=== PATIENT | female | born 1935 | race Caucasian/White ===

== ENCOUNTER 2020-09-13 12:20 | Inpatient (IN) | payer MEDICARE ==
[~2020-09-13] VITALS: Ht 165.1 cm; Wt 88.1 kg
--- NOTE | 2020-09-13 12:42 | PHYS DOC ---
General Adult EDM: Chief Complaint: SHORTNESS OF BREATH HPI: HPI: Patient is a 85-year-old female coming in for shortness of breath since yesterday. Patient states she is in from out of town and has been here for approximately 1 week to help of family. At home patient's oxygen was checked and was in the low 80s. She denies any cough, chest pain, worsening lower extremity edema. States she has been compliant on all of her medications. Denies any sick contacts. Received her second dose of Covid vaccine in May. Has a history of of CHF and A. fib, and is anticoagulated Eliquis. Denies orthopnea, but uses a "breathing machine" at night. Denies any history of lung disease or tobacco use. Review of Systems: Review of Systems: All other systems within normal limits except for as noted in the HPI Physical Exam: PE: Constitutional: Well developed, well nourished, no acute distress, non-toxic appearance. [] HENT: Normocephalic, atraumatic, bilateral external ears normal, nose normal. [] Eyes: PERRLA, conjunctiva normal, no discharge. [] Neck: No rigidity, supple, no stridor. [] Cardiovascular: Irregularly irregular rhythm, brisk cap refill [] Lungs & Thorax: Non labored symmetric respirations, no tachypnea or respiratory distress. Diminished breath sounds at bases, faint crackles on the left. [] Abdomen: Soft, nondistended. Skin: Warm, dry, no erythema, no rash. [] Back: Unremarkable Extremities: No deformities, range of motion grossly intact, no lower extremity edema [] Neurologic: Alert and oriented X 3, no focal deficits noted. [] Psychologic: Affect normal, judgement normal, mood normal. [] EKG: EKG: Irregular regular rhythm, left axis deviation, left anterior fascicular block, no ST elevation or depression [] Radiology/Procedures: Radiology/Procedures: EXAMINATION: CT THORAX W. Technique: Axial images with coronal and sagittal reconstructions are performed of the thorax with intravenous contrast. 60 ml of Isovue-300 was administered intravenously. One or more of the following radiation dose reduction techniques was used: aut omated exposure control, adjustment of mA and/or KV according to patient size, and/or utilization of iterative reconstruction technique. HISTORY: 85 years Female hypoxia. COMPARISON: Correlation with chest x-ray performed on the same day. FINDINGS: There is a significant consolidation in the right lung with patchy mild areas of consolidation in the left lung seen. The there is a mixed solid and groundglass opacities. There are also bilateral pleural effusions small to moderate on the right side and small on the left side. The heart size is a enlarged with particularly dilated left and right atria. Significant coronary artery c alcifications seen. There is no pericardial effusion. At the pulmonary arteries and at the thoracic aorta appear unremarkable. There is no mediastinal mass. There is some mild lymphadenopathy measuring 1.5 the CM in the pretracheal region. No axillary lymphadenopathy. Slightly prominent right hilar lymph nodes also seen. Sections in the upper abdomen appear grossly unremarkable. 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 IMPRESSION: Findings are probably related to CHF with suspected superimposed pneumonia in the right lung base and the asymmetry of the findings. [] Heart Score: C/O Chest Pain: No Risk Factors: Risk Factors: DM, Current or recent (<one month) smoker, HTN, HLP, family history of CAD, obesity. Risk Scores: Score 0 - 3: 2.5% MACE over next 6 weeks - Discharge Home Score 4 - 6: 20.3% MACE over next 6 weeks - Admit for Clinical Observation Score 7 - 10: 72.7% MACE over next 6 weeks - Early Invasive Strategies Course & Med Decision Making: Course & Med Decision Making Pertinent Labs and Imaging studies reviewed. (See chart for details) Admit for pneumonia requiring oxygen. Dr. Langley looks up to this hospital. Ant ibiotics initiated for CAP [] Antwan Disclaimer: Antwan Disclaimer: This electronic medical record was generated, in whole or in part, using a voice recognition dictation system. Departure Departure: Impression: Primary Impression: CAP (community acquired pneumonia) Disposition: ADMITTED INPATIENT Admitting Physician: Cami Langley Condition: STABLE Referrals: PCP,UNKNOWN (PCP) BARB QUINTANA MD September 13, 2020 12:42
[2020-09-13 13:08] LABS: BASO % 0 % (0-3); EOS % 0 % (0-3); HEMOGLOBIN 9.9 g/dL (12.0-15.5); LYMPH % 10 % (24-48); MEAN CORPUSCULAR HEMOGLOBIN 33 pg (25-35); MEAN CORPUSCULAR HGB CONC 33 g/dL (31-37); MEAN CORPUSCULAR VOLUME 99 fL (79-100); MONO # 0.9 x10^3/uL (0.0-1.1); MONO % 9 % (0-9); NEUT # 7.8 x10^3uL (1.8-7.7); NEUT % 80 % (31-73); PLATELET COUNT 265 x10^3/uL (140-400); RED BLOOD COUNT 3.04 x10^6/uL (3.50-5.40); RED CELL DISTRIBUTION WIDTH 13.9 % (11.5-14.5); WHITE BLOOD COUNT 9.8 x10^3/uL (4.0-11.0)
--- NOTE | 2020-09-13 13:09 | RAD ---
XR CHEST 1V History: Reason: hypoxia, dyspnea / Spl. Instructions: / History: Comparison: None. Findings: Masslike consolidations within the right mid and upper lung. Additional patchy bibasilar opacities. S mall right pleural effusion. No pneumothorax. Normal heart size. Glenohumeral DJD. Impression: 1. Masslike consolidations within the right mid and upper lung, may represent pneumonia. Recommend f ollow-up to ensure resolution and exclude underlying malignancy. Alternatively, CT with contrast can further assess. 2. Small right pleural effusion. Electronically signed by: Zachary Tran DO (09/13/2020 1:07 PM) [id number]
[2020-09-13 13:20] LABS: CALCIUM 9.4 mg/dL (8.5-10.1); CREATININE 1.1 mg/dL (0.6-1.0); POTASSIUM 4.8 mmol/L (3.5-5.1)
[2020-09-13] MEDS ORDERED: IOHEXOL 300 MG/ML 75 ML VIAL. IV ONE (13:30)
[2020-09-13] MEDS ORDERED: CONTRAST GIVEN. MC PRN (13:30)
[2020-09-13 13:46] LABS: ALBUMIN 2.8 g/dL (3.4-5.0); ALBUMIN/GLOBULIN RATIO 0.7 (1.0-1.7); MAGNESIUM 2.2 mg/dL (1.8-2.4); PHOSPHORUS 3.5 mg/dL (2.6-4.7); TOTAL BILIRUBIN 0.8 mg/dL (0.2-1.0); TOTAL PROTEIN 6.8 g/dL (6.4-8.2)
--- NOTE | 2020-09-13 13:53 | EKG ---
[address] [address] Test Date: 2020-09-13 Test Time: 12:38:41 Pat Name: MARILEE RIBEIRO Department: Room: Gender: F Gate Technician: : [id number] Requested By: BARB QUINTANA Order Number: [id number] Reading MD: Measurements Intervals Hugo Rate: 94 P: OR: QRS: -48 QRSD: 104 T: 83 QT: 344 QTc: 435 Interpretive Statements IRREGULAR RHYTHM, NO P-WAVE FOUND ABNORMAL LEFT AXIS DEVIATION LEFT ANTERIOR FASCICULAR BLOCK LVH WITH REPOLARIZATION ABNORMALITY QRS(T) CONTOUR ABNORMALITY CONSIDER ANTEROSEPTAL MYOCARDIAL DAMAGE ABNORMAL ECG RI6.02 No previous ECG available for comparison
--- NOTE | 2020-09-13 15:00 | RAD ---
Site ID: [id number] EXAMINATION: CT THORAX W. Technique: Axial images with coronal and sagittal reconstructions are performed of the thorax with in travenous contrast. 60 ml of Isovue-300 was administered intravenously. One or more of the following radiation dose reduction techniques was used: automated exposure control , adjustment of mA and/or KV according to patient size, and/or utilization of iterative reconstructio n technique. HISTORY: 85 years Female hypoxia. COMPARISON: Correlation with chest x-ray performed on the same day. FINDINGS: There is a significant consolidation in the right lung with patchy mild areas of consolidation in the left lung seen. The there is a mixed solid and groundglass opacities. There are also bilateral pleur al effusions small to moderate on the right side and small on the left side. The heart size is a enla rged with particularly dilated left and right atria. Significant coronary artery calcifications seen. There is no pericardial effusion. At the pulmonary arteries and at the thoracic aorta appear unremarkable. There is no mediastinal mass. There is some mild lymphadenopathy measuring 1.5 the CM in the pretrach eal region. No axillary lymphadenopathy. Slightly prominent right hilar lymph nodes also seen. Sections in the upper abdomen appear grossly unremarkable. 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 IMPRESSION: Findings are probably related to CHF with suspected superimposed pneumonia in the right lung base and the asymmetry of the findings. Electronically signed by: Cade Ronquillo MD (09/13/2020 2:58 PM) [id number]
[2020-09-13 15:02] LABS: BILIRUBIN,URINE NEG (NEG); CLARITY,URINE CLEAR; COLOR,URINE YELLOW; GLUCOSE,URINE NEG (NEG); NITRITE,URINE NEG (NEG); UROBILINOGEN,URINE 0.2 mg/dL (0.2 mg/dL)
[2020-09-13 15:07] LABS: BACTERIA,URINE 0 /HPF (0-FEW); HYALINE CASTS, URINE MOD /HPF; SQUAMOUS EPITHELIAL CELL,UR FEW /LPF
[2020-09-13] MEDS ORDERED: MORPHINE SULFATE 2 MG/ML DISP.SYRIN. IVP PRN (15:30)
[2020-09-13] MEDS ORDERED: ONDANSETRON PF 4 MG/2 ML VIAL. IVP PRN (15:30)
[2020-09-13] MEDS ORDERED: ACETAMINOPHEN 325 MG TABLET PO PRN (15:30)
[2020-09-13] MEDS ORDERED: AZITHROMYCIN 500 MG in IV NORMAL SALINE 250ML 250 ML IV ONE (15:30)
[2020-09-13] MEDS ORDERED: IV NORMAL SALINE 250ML 250 ML ONE (15:32)
[2020-09-13] MEDS ORDERED: AZITHROMYCIN 500 MG VIAL. IV ONE (15:32)
[2020-09-13] MEDS ORDERED: IV NORMAL SALINE 50ML 50 ML ONE (15:32)
[2020-09-13] MEDS ORDERED: cefTRIAXone SODIUM 1 GM VIAL ONE (15:32)
[2020-09-13 16:36] VITALS: BP 117/73
[2020-09-13] MEDS: IPRATRPIUM/ALBUTEROL 0.5/2.5MG 3 ML NEBU. NEB SCH ×2 (17:10→20:14)
[2020-09-13] MEDS ORDERED: LEVO25TA4 PO (17:17)
[2020-09-13] MEDS ORDERED: POTA10TA5 PO (17:17)
[2020-09-13] MEDS ORDERED: AMLO-186 PO (17:17)
[2020-09-13] MEDS ORDERED: IRBE1TAB5 PO (17:17)
[2020-09-13] MEDS ORDERED: VIT1CAPS12 PO (17:17)
[2020-09-13] MEDS ORDERED: APIX5TAB3 PO (17:17)
[2020-09-13] MEDS ORDERED: CRESTOR10 MG PO (17:17)
[2020-09-13] MEDS ORDERED: FURO20TA3 PO (17:17)
[2020-09-13] MEDS ORDERED: MULT-47 PO ×2 (17:17)
[2020-09-13] MEDS ORDERED: METF500T16 PO (17:17)
[2020-09-13] MEDS ORDERED: CHOL10004 PO (17:17)
[2020-09-13] MEDS ORDERED: LABE300T2 PO (17:30)
[2020-09-13] MEDS ORDERED: LABE100T5 PO (17:30)
[2020-09-13] MEDS ORDERED: MULT-129 PO (17:57)
[2020-09-13] MEDS ORDERED: IRBE300T23 PO (17:57)
--- NOTE | 2020-09-13 19:18 | HP ---
ADMIT DATE: 09/13/2020 HISTORY OF PRESENT ILLNESS: The patient is an 85-year-old female patient, who presented to the emergency room with a complaint of shortness of breath that started yesterday. She actually came to visit her children from [place] and has been here for approximately one week to help her family at home. The patient's oxygen was checked and was low at the 80s. She denied any cough, chest pain, or worsening lower extremity edema. She states she has been compliant with all of her medication. Denied any sick contact. She received her second dose of COVID vaccine in May. She has a history of congestive heart failure, AFib, and she is on anticoagulation in the form of Eliquis. She denied any orthopnea; however, she is known to have obstructive sleep apnea and she is on CPAP at nighttime. She was extensively investigated in the emergency room and apparently was found to have community-acquired pneumonia as well as [id number] congestive heart failure. She was treated with IV antibiotic in the form of Rocephin and Zithromax. She was also given breathing treatment and was admitted for further evaluation and treatment and to consult our account executive agrib[employer], as her x-rays are suggestive of also an element of congestive heart failure. PAST MEDICAL HISTORY: Significant for hypertension, hyperlipidemia, type 2 diabetes mellitus, hypothyroidism, atrial fibrillation, obstructive sleep apnea, TIA, and senile macular degeneration. PAST SURGICAL HISTORY: Significant for bilateral total knee arthroplasty. ALLERGIES: She has no known drug allergies. MEDICATIONS: She is on apixaban 5 mg twice a day, labetalol 150 mg daily, labetalol 300 mg at bedtime, amlodipine besylate 5 mg daily, irbesartan/hydrochlorothiazide 150/12.5 mg one tablet once a day, potassium chloride 10 mEq twice a day, furosemide 20 mg daily, metformin 500 mg twice a day with meals, levothyroxine sodium 25 mcg once a day, cholecalciferol vitamin D3 25 mcg twice a day, multivitamin with mineral one tablet once a day, Crestor 10 mg at bedtime. FAMILY HISTORY: She has one older sister who is . Both parents are , but does not know their age or the cause of their . SOCIAL HISTORY: She lives alone. She never smoked, does not drink alcohol. She has 2 daughters and 1 son. She uses a cane when outside the home. REVIEW OF SYSTEMS: The patient denied any blurring of vision. She has cataracts and senile macular degeneration. Denied any glaucoma. Denied any earache, tinnitus or sensorineural deafness. Denied nosebleed, stuffy nose or postnasal drip. Denied any sore throat, sore tongue, toothache, hoarseness of voice, or difficulty swallowing. Denied any nausea, vomiting, diarrhea or constipation. Denied any hematemesis, melena or hematochezia. Denied any dysuria, frequency or hematuria. Denied any chest pain. Did complain of shortness of breath, but denied any orthopnea or paroxysmal nocturnal dyspnea. Denied any cough, phlegm, or hemoptysis. PHYSICAL EXAMINATION: GENERAL: On arrival to the emergency room, the patient looked well and was clearly in no apparent respiratory distress. She was somewhat pale, but no jaundice, cyanosis or thyromegaly. No jugular venous distention. No limb edema. VITAL SIGNS: Her heart rate was 89, blood pressure is 128/71, temperature was 97.1, respiratory rate was 18 and oxygen saturation was 85% on room air. HEAD, EYES, EARS, NOSE, AND THROAT: Normocephalic, atraumatic. NECK: Supple. HEART: Showed normal first and second heart sounds. No gallop or murmur. CHEST: Shows central trachea. Equal bilateral expansion and air entry. Vesicular breath sounds with crepitation mostly bilaterally, but more worse on the right side. I could not appreciate any rhonchi. ABDOMEN: Distended, soft, nontender. NEUROLOGIC: She is awake, alert, responding appropriately. Cranial nerves intact. She moves extremities without difficulty. LABORATORY DATA: Her lab work on admission showed a white cell count of 9800, hemoglobin 10, hematocrit 30, MCV 99 and platelet count 265,000. Her blood gases showed a pH of 7.41, pCO2 of 39, pO2 of 21, bicarbonate 25, and oxygen saturation was 35% on FIO2 of 40%. Her chemistry showed a serum sodium 142, potassium 4.8, chloride 107, bicarbonate 24, anion gap of 11, BUN 35, creatinine 1.1. Estimated GFR was 47 mL per minute, her glucose 157. Lactic acid was 1.4, calcium was 9.4, phosphorus 2.5, magnesium 2.2. Total bilirubin and ALT normal, AST and alkaline phosphatase slightly elevated. Beta-natriuretic peptide was 5858. Total protein 6.8, albumin 2.8. D-dimer was 0.49. Urinalysis was essentially unremarkable and was negative. Her chest x-ray showed mass-like consolidation within the right mid and upper lung, may represent pneumonia. Recommend followup to ensure resolution and exclude underlying malignancy. CT scan of the chest with contrast showed the patient has significant consolidation in the right lung with patchy mild areas of consolidation in the left lung seen. There are mixed, solid and ground-glass opacities. There are also bilateral pleural effusions, small to moderate on the right side and small on the left side. The heart size is enlarged with particularly dilated left and right atria. Significant coronary artery calcification is seen. There is no pericardial effusion. The pulmonary arteries and the thoracic aorta appears unremarkable. There is no mediastinal mass. There is some mild lymphadenopathy measuring 1.5. No axillary lymphadenopathy. There is no mediastinal mass. There is some mild lymphadenopathy measuring up to 1.5 cm. Sections in the upper abdomen appeared grossly unremarkable. ASSESSMENT AND PLAN: The patient was admitted with community-acquired pneumonia with possible superimposed [id number] congestive heart failure. She was started on ceftriaxone and Zithromax. We will reconcile all her medications. I will change her Lasix to be given IV tomorrow and will consult also our account executive [employer] to assist with her management. ATIF/MANUEL DR: Mook TID: [id number]
[2020-09-13 19:36] VITALS: BP 106/65
[2020-09-13] MEDS: CHOLECALCIFEROL (VITAMIN D3) 1,000 UNIT TABLET PO SCH (20:53)
[2020-09-13] MEDS: ATORVASTATIN CALCIUM 20 MG TABLET PO SCH (20:53)
[2020-09-13] MEDS: POTASSIUM CHLORIDE 10 MEQ TABLET.ER. PO SCH (20:54)
[2020-09-13] MEDS: APIXABAN 5 MG TABLET. PO SCH (20:54)
[2020-09-13] MEDS: LABETALOL HCL 100 MG TABLET PO SCH (20:55)
[2020-09-13 22:40] VITALS: BP 99/57
[2020-09-14] MEDS: IPRATRPIUM/ALBUTEROL 0.5/2.5MG 3 ML NEBU. NEB SCH ×2 (05:20→11:18)
[2020-09-14] MEDS: LEVOTHYROXINE 25 MCG TABLET. PO SCH (05:23)
[2020-09-14 05:47] VITALS: BP 142/70
[2020-09-14 05:59] LABS: BASO % 0 % (0-3); EOS # 0.2 x10^3/uL (0.0-0.7); EOS % 3 % (0-3); HEMOGLOBIN 9.9 g/dL (12.0-15.5); LYMPH # 1.1 x10^3/uL (1.0-4.8); LYMPH % 13 % (24-48); MEAN CORPUSCULAR HEMOGLOBIN 32 pg (25-35); MEAN CORPUSCULAR HGB CONC 33 g/dL (31-37); MEAN CORPUSCULAR VOLUME 98 fL (79-100); MONO # 0.9 x10^3/uL (0.0-1.1); MONO % 10 % (0-9); NEUT # 6.5 x10^3uL (1.8-7.7); NEUT % 75 % (31-73); PLATELET COUNT 280 x10^3/uL (140-400); RED BLOOD COUNT 3.05 x10^6/uL (3.50-5.40); RED CELL DISTRIBUTION WIDTH 13.7 % (11.5-14.5); WHITE BLOOD COUNT 8.8 x10^3/uL (4.0-11.0)
[2020-09-14 06:10] LABS: CREATININE 1.1 mg/dL (0.6-1.0); POTASSIUM 4.5 mmol/L (3.5-5.1)
[2020-09-14] MEDS: LABETALOL HCL 100 MG TABLET PO SCH ×2 (08:00→20:12)
[2020-09-14] MEDS: CHOLECALCIFEROL (VITAMIN D3) 1,000 UNIT TABLET PO SCH ×2 (08:06→20:13)
[2020-09-14] MEDS: LOSARTAN 50 MG TABLET. PO SCH (08:06)
[2020-09-14] MEDS: MULTIVITAMIN I-VITE TABLET. PO SCH (08:06)
[2020-09-14] MEDS: MULTIVITAMIN with MINERAL TABLET. PO SCH (08:07)
[2020-09-14] MEDS: POTASSIUM CHLORIDE 10 MEQ TABLET.ER. PO SCH ×2 (08:07→20:12)
[2020-09-14] MEDS: amLODIPine BESYLATE 5 MG TABLET PO SCH (08:07)
[2020-09-14] MEDS: metFORMIN 500 MG TABLET PO SCH ×2 (08:07→16:53)
[2020-09-14] MEDS: APIXABAN 5 MG TABLET. PO SCH ×2 (08:07→20:12)
[2020-09-14] MEDS: FUROSEMIDE 20 MG/2 ML VIAL IVP SCH (08:08)
[2020-09-14] MEDS ORDERED: GINKGO PO SCH (09:00)
[2020-09-14] MEDS ORDERED: [UNRECOGNIZED DRUG - OTHER] PO SCH (09:00)
[2020-09-14] MEDS ORDERED: MULTIVITAMINS MIN PO SCH (09:00)
[2020-09-14 11:10] VITALS: BP 136/77
--- NOTE | 2020-09-14 15:43 | PDOC2 ---
CONSULT DOS: DATE: 09/14/20 TIME: 15:43 Reason for Consult: Congestive heart failure Referring Physician: Dr. Langley Chief Complaint Shortness of breath Source: Chart review, Patient Problem List Problems Medical Problems: (1) CAP (community acquired pneumonia) Status: Acute History of Present Illness 85-year-old female with history of atrial fibrillation was apparently visiting her family in [place] when she developed shortness of breath. She was diagnosed with community-acquired pneumonia and congestive heart failure and admitted for further management. She denied any chest pain, orthopnea/PND, palpitations or syncope. Her shortness of breath improved since admission. Past Medical History Atrial fibrillation, most probably permanent Hypertension Hyperlipidemia Diabetes mellitus type 2 Hypothyroidism Obstructive sleep apnea TIA Macular degeneration Past Surgical History Bilateral total knee arthroplasty Family History Not contributory Social History Patient denied any smoking, alcohol or drug use Current Medications Current Medications Iohexol (Omnipaque 300 Mg/ml) 75 ml 1X ONCE IV Last administered on 09/13/20at 14:25; Start 09/13/20 at 13:30; Stop 09/13/20 at 13:31; Status DC Info (Do NOT chart on this entry -- for MONITORING) 1 each PRN DAILY PRN MC SEE COMMENTS; Start 09/13/20 at 13:30; Stop 09/15/20 at 13:29 Ceftriaxone Sodium 1 gm/ Sodium Chloride 50 ml @ 100 mls/hr 1X ONCE IV Last administered on 09/13/20at 15:38; Start 09/13/20 at 15:30; Stop 09/13/20 at 15:59; Status DC Azithromycin 500 mg/Sodium Chloride 250 ml @ 250 mls/hr 1X ONCE IV Last administered on 09/13/20at 15:47; Start 09/13/20 at 15:30; Stop 09/13/20 at 16:29; Status DC Ondansetron HCl (Zofran) 4 mg PRN Q4HRS PRN IVP NAUSEA/VOMITING Last administered on 09/13/20at 15:47; Start 09/13/20 at 15:30; Stop 09/14/20 at 15:29; Status DC Morphine Sulfate (Morphine 2mg Syringe) 2 mg PRN Q2HR PRN IVP PAIN; Start 09/13/20 at 15:30; Stop 09/14/20 at 15:29; Status DC Acetaminophen (Tylenol) 650 mg PRN Q4HRS PRN PO FEVER > 100.3'F Last administered on 09/13/20at 15:38; Start 09/13/20 at 15:30; Stop 09/14/20 at 15:29; Status DC Albuterol/ Ipratropium (Duoneb) 3 ml RTQID NEB Last administered on 09/14/20at 11:18; Start 09/13/20 at 16:00; Stop 09/14/20 at 15:59 Sodium Chloride 250 ml @ As Directed STK-MED ONCE .ROUTE ; Start 09/13/20 at 15:32; Stop 09/13/20 at 15:32; Status DC Azithromycin (Zithromax) 500 mg STK-MED ONCE IV ; Start 09/13/20 at 15:32; Stop 09/13/20 at 15:32; Status DC Sodium Chloride 50 ml @ As Directed STK-MED ONCE .ROUTE ; Start 09/13/20 at 15:32; Stop 09/13/20 at 15:32; Status DC Ceftriaxone Sodium (Rocephin) 1 gm STK-MED ONCE .ROUTE ; Start 09/13/20 at 15:32; Stop 09/13/20 at 15:32; Status DC Amlodipine Besylate (Norvasc) 5 mg DAILY PO Last administered on 09/14/20at 08:07; Start 09/14/20 at 09:00 Apixaban (Eliquis) 5 mg BID PO Last administered on 09/14/20at 08:07; Start 09/13/20 at 21:00 Vitamin D (Vitamin D3) 1,000 unit BID PO Last administered on 09/14/20at 08:06; Start 09/13/20 at 21:00 Labetalol HCl (Trandate) 150 mg DAILY08 PO ; Start 09/14/20 at 08:00 Levothyroxine Sodium (Synthroid) 25 mcg DAILY06 PO Last administered on 09/14/20at 05:23; Start 09/14/20 at 06:00 Metformin HCl (Glucophage) 500 mg BIDWMEALS PO Last administered on 09/14/20at 08:07; Start 09/14/20 at 08:00 Losartan Potassium (Cozaar) 50 mg DAILY PO Last administered on 09/14/20at 08:06; Start 09/14/20 at 09:00 Labetalol HCl (Trandate) 300 mg HS PO ; Start 09/13/20 at 21:00 Multivitamins/ Calcium (Thera-M Plus) 1 tab DAILY PO Last administered on 09/14/20at 08:07; Start 09/14/20 at 09:00 Non-Formulary Medication (Multivitamins-Min/ Fa/Ginkgo (One Daily For Women 50+ Adv Tb)) 1 each DAILY PO ; Start 09/14/20 at 09:00; Status UNV Potassium Chloride (Klor-Con) 10 meq BID PO Last administered on 09/14/20at 08:07; Start 09/13/20 at 21:00 Atorvastatin Calcium (Lipitor) 40 mg QHS PO Last administered on 09/13/20at 20:53; Start 09/13/20 at 21:00 Multivitamins/ Minerals (I-Farheen) 1 tab DAILY PO Last administered on 09/14/20at 08:06; Start 09/14/20 at 09:00 Furosemide (Lasix) 20 mg DAILY IVP Last administered on 09/14/20at 08:08; Start 09/14/20 at 09:00 Active Scripts Active Reported Irbesartan 300 Mg Tablet 0.5 Tab PO DAILY One Daily For Women 50+ Adv Tb (Multivitamins-Min/Fa/Ginkgo) 1 Each Tablet 1 Each PO DAILY Labetalol Hcl 300 Mg Tablet 300 Mg PO HS Labetalol Hcl 100 Mg Tablet 150 Mg PO DAILY08 Preservision Areds Softgel (Vit A/Vit C/Vit E/Zinc/Copper) 1 Each Capsule 1 Cap PO BID 30 Days Multiple Vitamins For Women (Multivit With Calcium,Iron,Min) 1 Each Tablet 1 Tab PO BID 30 Days Vitamin D3 (Vitamin D) 25 Mcg Tablet 25 Mcg PO BID 1,000 UNITS = 25 MCG Klor-Con 10 (Potassium Chloride) 10 Meq Tablet.er 10 Meq PO BID Metformin Hcl 500 Mg Tablet 500 Mg PO BIDWMEALS Crestor (Rosuvastatin Calcium) 10 Mg Tablet 10 Mg PO HS Eliquis (Apixaban) 5 Mg Tablet 5 Mg PO BID Furosemide 20 Mg Tablet 20 Mg PO DAILY Amlodipine Besylate 5 Mg Tablet 5 Mg PO DAILY Levothyroxine Sodium 25 Mcg Tablet 25 Mcg PO DAILYAC Allergies: Coded Allergies: No Known Drug Allergies (Unverified , 5/20/21) PSYCHOLOGICAL ROS: No: Hallucinations Eyes: No: Loss of vision HEENT: No: Epistaxis Respiratory: YES: Shortness of breath; No: Hemoptysis Cardiovascular: No: Chest Pain Gastrointestinal: No: Vomiting, Diarrhea Genitourinary: No: Henaturia Neurological: No: Seizures Skin: No: Rash General: Alert, Oriented X3 HEENT: Atraumatic Lungs: Other (Scattered crepitations bilaterally) Heart: Other (Heart rate is irregular) Abdomen: Soft, No tenderness Extremities: No edema Neuro: Normal speech Psych/Mental Status: Mood NL VITALS Vital Signs Date Time Temp Pulse Resp B/P (MAP) Pulse Ox O2 Delivery O2 Flow Rate FiO2 09/14/20 11:19 94 Nasal Cannula 5.0 09/14/20 11:10 98.3 92 18 136/77 (96) Labs Laboratory Tests Test 09/13/20 12:42 09/13/20 12:50 09/13/20 14:22 09/13/20 17:34 Bedside Venous pH 7.41 (7.32-7.42) Bedside Venous pCO2 39 mmHg (41-51) Bedside Venous pO2 21 mmHg (20-40) Venous Blood HCO3 25 mmol/L (24-28) POC Venous O2 Saturation (Sergio) 35 % Bedside FiO2 40 White Blood Count 9.8 x10^3/uL (4.0-11.0) Red Blood Count 3.04 x10^6/uL (3.50-5.40) Hemoglobin 9.9 g/dL (12.0-15.5) Hematocrit 30.0 % (36.0-47.0) Mean Corpuscular Volume 99 fL (79-100) Mean Corpuscular Hemoglobin 33 pg (25-35) Mean Corpuscular Hemoglobin Concent 33 g/dL (31-37) Red Cell Distribution Width 13.9 % (11.5-14.5) Platelet Count 265 x10^3/uL (140-400) Neutrophils (%) (Auto) 80 % (31-73) Lymphocytes (%) (Auto) 10 % (24-48) Monocytes (%) (Auto) 9 % (0-9) Eosinophils (%) (Auto) 0 % (0-3) Basophils (%) (Auto) 0 % (0-3) Neutrophils # (Auto) 7.8 x10^3uL (1.8-7.7) Lymphocytes # (Auto) 1.0 x10^3/uL (1.0-4.8) Monocytes # (Auto) 0.9 x10^3/uL (0.0-1.1) Eosinophils # (Auto) 0.0 x10^3/uL (0.0-0.7) Basophils # (Auto) 0.0 x10^3/uL (0.0-0.2) D-Dimer (Trisha) 0.49 mg/L (0.00-0.50) Sodium Level 142 mmol/L (136-145) Potassium Level 4.8 mmol/L (3.5-5.1) Chloride Level 107 mmol/L (98-107) Carbon Dioxide Level 24 mmol/L (21-32) Anion Gap 11 (6-14) Blood Urea Nitrogen 35 mg/dL (7-20) Creatinine 1.1 mg/dL (0.6-1.0) Estimated GFR (Cockcroft-Gault) 47.0 BUN/Creatinine Ratio 32 (6-20) Glucose Level 157 mg/dL (70-99) Lactic Acid Level 1.4 mmol/L (0.4-2.0) Calcium Level 9.4 mg/dL (8.5-10.1) Phosphorus Level 3.5 mg/dL (2.6-4.7) Magnesium Level 2.2 mg/dL (1.8-2.4) Total Bilirubin 0.8 mg/dL (0.2-1.0) Aspartate Amino Transf (AST/SGOT) 41 U/L (15-37) Alanine Aminotransferase (ALT/SGPT) 44 U/L (14-59) Alkaline Phosphatase 122 U/L (46-116) Troponin I Quantitative < 0.017 ng/mL (0-0.055) HV-Qny-J-Type Natriuretic Peptide 5858 pg/mL (0-449) Total Protein 6.8 g/dL (6.4-8.2) Albumin 2.8 g/dL (3.4-5.0) Albumin/Globulin Ratio 0.7 (1.0-1.7) Thyroid Stimulating Hormone (TSH) 1.739 uIU/mL (0.358-3.740) Urine Collection Type Unknown Urine Color Yellow Urine Clarity Clear Urine pH 5.5 Urine Specific [place] 1.025 Urine Protein Neg (NEG-TRACE) Urine Glucose (UA) Neg mg/dL (NEG) Urine Ketones (Stick) Neg mg/dL (NEG) Urine Blood Neg (NEG) Urine Nitrite Neg (NEG) Urine Bilirubin Neg (NEG) Urine Urobilinogen Dipstick 0.2 mg/dL (0.2 mg/dL) Urine Leukocyte Esterase Small (NEG) Urine RBC 3-5 /HPF (0-2) Urine WBC 1-4 /HPF (0-4) Urine Squamous Epithelial Cells Few /LPF Urine Bacteria 0 /HPF (0-FEW) Urine Hyaline Casts Mod /HPF Urine Mucus Slight /LPF Glucose (Fingerstick) 145 mg/dL (70-99) Test 09/13/20 20:26 09/13/20 21:33 09/14/20 05:41 09/14/20 07:50 Glucose (Fingerstick) 171 mg/dL (70-99) 155 mg/dL (70-99) Troponin I Quantitative < 0.017 ng/mL (0-0.055) White Blood Count 8.8 x10^3/uL (4.0-11.0) Red Blood Count 3.05 x10^6/uL (3.50-5.40) Hemoglobin 9.9 g/dL (12.0-15.5) Hematocrit 30.0 % (36.0-47.0) Mean Corpuscular Volume 98 fL (79-100) Mean Corpuscular Hemoglobin 32 pg (25-35) Mean Corpuscular Hemoglobin Concent 33 g/dL (31-37) Red Cell Distribution Width 13.7 % (11.5-14.5) Platelet Count 280 x10^3/uL (140-400) Neutrophils (%) (Auto) 75 % (31-73) Lymphocytes (%) (Auto) 13 % (24-48) Monocytes (%) (Auto) 10 % (0-9) Eosinophils (%) (Auto) 3 % (0-3) Basophils (%) (Auto) 0 % (0-3) Neutrophils # (Auto) 6.5 x10^3uL (1.8-7.7) Lymphocytes # (Auto) 1.1 x10^3/uL (1.0-4.8) Monocytes # (Auto) 0.9 x10^3/uL (0.0-1.1) Eosinophils # (Auto) 0.2 x10^3/uL (0.0-0.7) Basophils # (Auto) 0.0 x10^3/uL (0.0-0.2) Sodium Level 142 mmol/L (136-145) Potassium Level 4.5 mmol/L (3.5-5.1) Chloride Level 108 mmol/L (98-107) Carbon Dioxide Level 25 mmol/L (21-32) Anion Gap 9 (6-14) Blood Urea Nitrogen 34 mg/dL (7-20) Creatinine 1.1 mg/dL (0.6-1.0) Estimated GFR (Cockcroft-Gault) 47.0 Glucose Level 134 mg/dL (70-99) Calcium Level 9.0 mg/dL (8.5-10.1) Test 09/14/20 11:49 Glucose (Fingerstick) 113 mg/dL (70-99) Assessment/Plan 1. Congestive heart failure, most probably acute on chronic diastolic, improving with diuresis. We will obtain records regarding 2D echo etc. from primary senior executive compensation analyst. 2. Atrial fibrillation, most probably permanent. Heart rate slightly elevated probably secondary to pneumonia. Continue Eliquis for stroke prophylaxis. 3. Hypertension: Controlled 4. Community-acquired pneumonia: Continue antibiotics per IM 5. Hyperlipidemia: Continue statins 6. Hypothyroidism: Continue levothyroxine 7. Diabetes mellitus type 2: Treat per IM Thank you for your consultation JUSTIN GONSALEZ MD September 14, 2020 15:43
[2020-09-14 15:58] VITALS: BP 125/69
[2020-09-14] MEDS ORDERED: VIT1CAPS12 PO (17:30)
[2020-09-14] MEDS ORDERED: ONDANSETRON ODT 4 MG TAB.RAPDIS PO ONE (18:30)
[2020-09-14] MEDS ORDERED: ACETAMINOPHEN 325 MG TABLET PO ONE (19:43)
[2020-09-14] MEDS ORDERED: ACETAMINOPHEN 325 MG TABLET PO PRN (19:45)
[2020-09-14 19:57] VITALS: BP 116/71
[2020-09-14] MEDS: ATORVASTATIN CALCIUM 20 MG TABLET PO SCH (20:12)
[2020-09-14 23:07] VITALS: BP 91/53
--- NOTE | 2020-09-14 23:11 | PN ---
DATE: 09/14/2020 SUBJECTIVE: The patient is resting, slightly propped up in bed, in no apparent respiratory distress. She stated she is feeling slightly better. She has been in and out of the bathroom and restarted on IV Lasix. Her heart rate continued to be fluctuated between 90-100, irregularly irregular. When I examined her, she was pale, but not jaundiced or cyanosed. No lymphadenopathy, no thyromegaly, no jugular venous distention. No limb edema. OBJECTIVE: VITAL SIGNS: Her heart rate was 92, blood pressure was 136/77, temperature was 98.3, respiratory rate was 18, and oxygen saturation was 94% on 5 liters of oxygen. HEAD, EYES, EARS, NOSE, AND THROAT: Normocephalic, atraumatic. NECK: Supple. HEART: Normal first and second heart sounds, no gallop, rub, or murmur. CHEST: Shows central trachea, equal bilateral expansion, air entry, vesicular breath sounds with crepitation on both sides, worse on the right side involving the entire right lung while in the left side only posteriorly. I could not appreciate any rhonchi. ABDOMEN: Distended, soft, nontender. NEUROLOGIC: She is grossly intact. Her intake and output are incompletely recorded. LABORATORY DATA: Her lab work this morning showed a white cell count of 8800, hemoglobin 9.9, hematocrit 30, MCV 98, platelet count 280,000 with a manual differential showed 75% polymorphs, 13% lymphocytes, 10% monocytes. Her chemistry this morning showed a serum sodium 142, potassium 4.5, chloride 108, bicarbonate 25, anion gap of 9, BUN 34, creatinine 1.1. Estimated GFR was 47 mL per minute. Her glucose was 134, calcium was 9. There are two sets of cardiac enzymes that ruled out myocardial infarction. Her D-dimer was 0.49. CT angio showed that there is a significant consolidation of the right lung with patchy mild areas of consolidation in the left lung seen. There is a mixed solid and ground glass opacities. There are also bilateral pleural effusion, mild to moderate on the right side and small on the left side. Her heart size is enlarged with particularly dilated left and right atria. There is significant coronary artery calcification seen. There is no pericardial effusion. ASSESSMENT: 1. Community-acquired pneumonia. 2. Acute probably on chronic congestive heart failure. 3. Atrial fibrillation with rapid ventricular response. Heart rate is reasonably controlled between 90-100. 4. Hypertension. This seems to be reasonably controlled. 5. Hyperlipidemia. 6. Type 2 diabetes mellitus. 7. Hypothyroidism. 8. Obstructive sleep apnea. 9. Senile macular degeneration. PLAN: To continue with IV antibiotic. Continue with IV Lasix. Continue with all other medication. We will continue with physical and occupational therapy. VICENTE DR: Mook TID: [id number]
[2020-09-15] MEDS ORDERED: AZITHROMYCIN 500 MG in IV NORMAL SALINE 250ML 250 ML IV ONE (03:30)
[2020-09-15] MEDS: LEVOTHYROXINE 25 MCG TABLET. PO SCH (06:32)
[2020-09-15 07:18] LABS: CALCIUM 8.6 mg/dL (8.5-10.1); CREATININE 1.2 mg/dL (0.6-1.0); GFR 42.5; POTASSIUM 4.6 mmol/L (3.5-5.1)
[2020-09-15 07:53] VITALS: BP 122/72
[2020-09-15] MEDS: MULTIVITAMIN with MINERAL TABLET. PO SCH (08:34)
[2020-09-15] MEDS: MULTIVITAMIN I-VITE TABLET. PO SCH (08:34)
[2020-09-15] MEDS: CHOLECALCIFEROL (VITAMIN D3) 1,000 UNIT TABLET PO SCH ×2 (08:34→20:43)
[2020-09-15] MEDS: LOSARTAN 50 MG TABLET. PO SCH (08:34)
[2020-09-15] MEDS: APIXABAN 5 MG TABLET. PO SCH ×2 (08:34→20:42)
[2020-09-15] MEDS: amLODIPine BESYLATE 5 MG TABLET PO SCH (08:34)
[2020-09-15] MEDS: POTASSIUM CHLORIDE 10 MEQ TABLET.ER. PO SCH ×2 (08:34→20:43)
[2020-09-15] MEDS: LABETALOL HCL 100 MG TABLET PO SCH ×2 (08:35→20:45)
[2020-09-15] MEDS: metFORMIN 500 MG TABLET PO SCH ×2 (08:35→17:12)
[2020-09-15] MEDS: FUROSEMIDE 20 MG/2 ML VIAL IVP SCH (08:35)
[2020-09-15 10:57] VITALS: BP 125/59
[2020-09-15 15:31] VITALS: BP 119/70
--- NOTE | 2020-09-15 20:08 | PN ---
DATE: 09/15/2020 SUBJECTIVE: The patient is resting, slightly propped up in bed, in no apparent respiratory distress. She is clearly more comfortable. PHYSICAL EXAMINATION: GENERAL: When I examined her, she looked pale; no jaundice, cyanosis or thyromegaly. No jugular venous distention. No edema. VITAL SIGNS: Her heart rate was 78, blood pressure is 125/59, temperature was 98.3, respiratory rate was 18 and oxygen saturation was 92% on room air. HEAD, EYES, EARS, NOSE AND THROAT: Showed she is normocephalic, atraumatic. NECK: Supple. HEART: Showed normal first and second heart sounds, no gallop, murmur. CHEST: Shows central trachea, equal bilateral expansion, air entry, vesicular breath sounds with crepitation mostly on the right side involving most of the right lung, few crepitations on the left side posteriorly. I could not appreciate any rhonchi. ABDOMEN: Distended, soft, nontender. NEUROLOGIC: She was grossly intact. Her intake and output are incompletely recorded. LABORATORY DATA: This morning showed a serum sodium 142, potassium 4.6, chloride 108, bicarbonate 25, anion gap of 9, BUN 28, creatinine 1.2. Estimated GFR was 42 mL per minute. Her glucose was 147, calcium was 8.6. Her beta-natriuretic peptide was 4317. Her white cell count was 8800, hemoglobin 10, hematocrit 30, MCV 98 and platelet count of 280,000. ASSESSMENT: 1. Community-acquired pneumonia seems to be improving. 2. Acute on chronic congestive heart failure. The patient now is on room air, maintaining her oxygen saturation at 92%. 3. Atrial fibrillation with rapid ventricular response, the rate is controlled. According to nursing staff, her rate has been in the 80s overnight and this morning. 4. Hypertension, seems to be well controlled. 5. Hyperlipidemia. 6. Type 2 diabetes mellitus. 7. Hypothyroidism. 8. Obstructive sleep apnea. 9. Age-related macular degeneration. PLAN: To continue with IV antibiotic. Continue with IV Lasix. Continue with all other medication. Continue with physical and occupational therapy. CALIXTO DR: Mook TID: [id number]
[2020-09-15] MEDS: ATORVASTATIN CALCIUM 20 MG TABLET PO SCH (20:43)
[2020-09-15 20:51] VITALS: BP 105/65
[2020-09-16] VITALS: BP 116/69
[2020-09-16] MEDS: LEVOTHYROXINE 25 MCG TABLET. PO SCH (05:37)
[2020-09-16 05:42] VITALS: BP 112/70
[2020-09-16] MEDS: AZITHROMYCIN 250 MG in IV NORMAL SALINE 250ML 250 ML IV SCH (06:17)
[2020-09-16 08:06] LABS: HEMATOCRIT 27.1 % (36.0-47.0); RED BLOOD COUNT 2.77 x10^6/uL (3.50-5.40); RED CELL DISTRIBUTION WIDTH 13.6 % (11.5-14.5); WHITE BLOOD COUNT 6.9 x10^3/uL (4.0-11.0)
[2020-09-16 08:18] LABS: CALCIUM 8.6 mg/dL (8.5-10.1); CREATININE 1.2 mg/dL (0.6-1.0); GFR 42.5; POTASSIUM 4.7 mmol/L (3.5-5.1)
[2020-09-16] MEDS: POTASSIUM CHLORIDE 10 MEQ TABLET.ER. PO SCH ×2 (09:08→20:23)
[2020-09-16] MEDS: CHOLECALCIFEROL (VITAMIN D3) 1,000 UNIT TABLET PO SCH ×2 (09:08→20:23)
[2020-09-16] MEDS: APIXABAN 5 MG TABLET. PO SCH ×2 (09:08→20:23)
[2020-09-16] MEDS: MULTIVITAMIN with MINERAL TABLET. PO SCH (09:09)
[2020-09-16] MEDS: MULTIVITAMIN I-VITE TABLET. PO SCH (09:09)
[2020-09-16] MEDS: metFORMIN 500 MG TABLET PO SCH ×2 (09:09→17:07)
[2020-09-16] MEDS: amLODIPine BESYLATE 5 MG TABLET PO SCH (09:09)
[2020-09-16] MEDS: LOSARTAN 50 MG TABLET. PO SCH (09:09)
[2020-09-16] MEDS: LABETALOL HCL 100 MG TABLET PO SCH ×2 (09:12→20:24)
[2020-09-16] MEDS: FUROSEMIDE 20 MG/2 ML VIAL IVP SCH (09:14)
[2020-09-16 11:06] VITALS: BP 134/62
[2020-09-16 16:01] VITALS: BP 108/56
[2020-09-16] MEDS ORDERED: LOPERAMIDE 2 MG CAPSULE PO PRN (17:30)
[2020-09-16 19:43] VITALS: BP 115/66
[2020-09-16] MEDS: LACTOBACILLUS RHAMNOSUS GG 1 CAPSULE. PO SCH (20:23)
[2020-09-16] MEDS: ATORVASTATIN CALCIUM 20 MG TABLET PO SCH (20:24)
[2020-09-16 23:15] VITALS: BP 103/61
--- NOTE | 2020-09-16 23:35 | PN ---
DATE: 09/16/2020 SUBJECTIVE: The patient is resting, almost flat in bed, in no apparent distress. She is now in room air, maintaining her oxygen saturation at 94%. PHYSICAL EXAMINATION: GENERAL: When I examined her, she looked pale; no jaundice, cyanosis or thyromegaly. No jugular venous distention. No edema. VITAL SIGNS: Her heart rate was 76, blood pressure is 134/63, temperature was 97.6, respiratory rate was 18 and oxygen saturation was 92%. HEAD, EYES, EARS, NOSE AND THROAT: Showed normocephalic, atraumatic. NECK: Supple. HEART: Showed normal first and second heart sounds, no gallop, murmur. CHEST: Shows central trachea, equal bilateral expansion, air entry, vesicular breath sounds with crepitation bilaterally posteriorly and also more on the right side and involving the right upper lobe, although she is definitely much better than she came in. ABDOMEN: Distended, soft, nontender. NEUROLOGIC: She has visual impairment due to macular degeneration, however, all other cranial nerves intact. She moves extremities without difficulty. She ambulates with a cane. Her intake was 1200 and output was incompletely recorded. LABORATORY DATA: Her lab work showed a serum sodium 141, potassium 4.7, chloride 108, bicarbonate 25, anion gap of 8, BUN 28, creatinine 1.2. Estimated GFR was 42 mL per minute. Her glucose was 127, calcium was 8.6. Her white cell count was 6900, hemoglobin 9, hematocrit 27, MCV 98 and platelet count of 321,000. ASSESSMENT: 1. Community-acquired pneumonia, seems to be improving. 2. Acute on chronic congestive heart failure, now on the room air. She is maintaining her oxygen saturation at 94%. 3. Atrial fibrillation with rapid ventricular response, her rate is much controlled. 4. Hypertension, seems to be well controlled. 5. Hyperlipidemia. 6. Type 2 diabetes mellitus, seems to be well controlled. 7. Hypothyroidism. 8. Obstructive sleep apnea. 9. Age-related macular degeneration. PLAN: To continue with IV antibiotic for today. I will discontinue her IV Lasix and switch it to oral. We will discharge her home tomorrow to finish the course of antibiotic at home for her community-acquired pneumonia. CESAR DR: Mook TID: [id number]
[2020-09-17] MEDS: LEVOTHYROXINE 25 MCG TABLET. PO SCH (05:56)
[2020-09-17 06:01] VITALS: BP 112/57
[2020-09-17] MEDS: AZITHROMYCIN 250 MG in IV NORMAL SALINE 250ML 250 ML IV SCH (06:31)
[2020-09-17] MEDS: LACTOBACILLUS RHAMNOSUS GG 1 CAPSULE. PO SCH (07:51)
[2020-09-17] MEDS: APIXABAN 5 MG TABLET. PO SCH (07:51)
[2020-09-17] MEDS: MULTIVITAMIN I-VITE TABLET. PO SCH (07:51)
[2020-09-17] MEDS: metFORMIN 500 MG TABLET PO SCH (07:51)
[2020-09-17] MEDS: POTASSIUM CHLORIDE 10 MEQ TABLET.ER. PO SCH (07:51)
[2020-09-17] MEDS: CHOLECALCIFEROL (VITAMIN D3) 1,000 UNIT TABLET PO SCH (07:52)
[2020-09-17] MEDS: LOSARTAN 50 MG TABLET. PO SCH (07:52)
[2020-09-17] MEDS: amLODIPine BESYLATE 5 MG TABLET PO SCH (07:52)
[2020-09-17] MEDS: MULTIVITAMIN with MINERAL TABLET. PO SCH (07:52)
[2020-09-17] MEDS: LABETALOL HCL 100 MG TABLET PO SCH (07:53)
--- NOTE | 2020-09-17 08:21 | PDOC ---
CARDIO Progress Notes Date & Time Date of Service DATE: 09/17/20 TIME: 08:18 Time of Evaluation 08:18 Subjective Notes Feeling well. Breathing improved Vitals Vitals Vital Signs Date Time Temp Pulse Resp B/P (MAP) Pulse Ox O2 Delivery O2 Flow Rate FiO2 09/17/20 07:53 80 112/57 09/17/20 06:01 97.7 18 92 Room Air 09/14/20 19:57 5.0 Weight Weight [ ] Input and Output I.O. Intake and Output 09/17/20 07:00 Intake Total 1340 ml Balance 1340 ml Intake Oral 1290 ml IV Total 50 ml # Voids 3 Laboratory Labs Laboratory Tests Test 09/15/20 11:47 09/15/20 16:49 09/15/20 20:19 09/16/20 06:55 Glucose (Fingerstick) 154 mg/dL (70-99) 122 mg/dL (70-99) 145 mg/dL (70-99) White Blood Count 6.9 x10^3/uL (4.0-11.0) Red Blood Count 2.77 x10^6/uL (3.50-5.40) Hemoglobin 9.0 g/dL (12.0-15.5) Hematocrit 27.1 % (36.0-47.0) Mean Corpuscular Volume 98 fL (79-100) Mean Corpuscular Hemoglobin 33 pg (25-35) Mean Corpuscular Hemoglobin Concent 33 g/dL (31-37) Red Cell Distribution Width 13.6 % (11.5-14.5) Platelet Count 321 x10^3/uL (140-400) Sodium Level 141 mmol/L (136-145) Potassium Level 4.7 mmol/L (3.5-5.1) Chloride Level 108 mmol/L (98-107) Carbon Dioxide Level 25 mmol/L (21-32) Anion Gap 8 (6-14) Blood Urea Nitrogen 28 mg/dL (7-20) Creatinine 1.2 mg/dL (0.6-1.0) Estimated GFR (Cockcroft-Gault) 42.5 Glucose Level 127 mg/dL (70-99) Calcium Level 8.6 mg/dL (8.5-10.1) Test 09/16/20 07:44 Glucose (Fingerstick) 128 mg/dL (70-99) Microbiology Micro Microbiology 09/13/20 Blood Culture - Preliminary, Resulted NO GROWTH AFTER 3 DAYS... 09/13/20 Urine Culture - Final, Complete Physical Exams HEENT: Neck Supple W Full Motion Chest: Symmetric Lungs: Other (diminished bases) Heart: irregularly irregular (AFIB, rate controlled ) Abdomen: Soft N/T Extremities: No Edema Neurology: alert, oriented, follow commands Assessment Assessment 1. Congestive heart failure, most probably acute on chronic diastolic, improved with diuresis. Awaiting records from primary psychologist, Dr. Barajas in [place], [place]. Follow up with him upon discharge 2. Paroxysmal AFIB. Heart rate now controlled. On BB therapy. Continue Eliquis for stroke prophylaxis. 3. Hypertension: Controlled 4. Community-acquired pneumonia: Continue antibiotics per IM 5. Hyperlipidemia: Continue statins 6. Hypothyroidism: Continue levothyroxine 7. Diabetes mellitus type 2: Treat per IM PHILIPP BLACKMON APRN September 17, 2020 08:21
[2020-09-17 10:37] VITALS: BP 113/67
[2020-09-17] MEDS ORDERED: CEFD300C PO (13:37)
[2020-09-17] MEDS ORDERED: FLUC150T PO (13:38)
[2020-09-17 13:40] LABS: CALCIUM 8.4 mg/dL (8.5-10.1); GFR 52.4; POTASSIUM 4.7 mmol/L (3.5-5.1)
--- NOTE | 2020-09-17 14:51 | DS ---
DATE OF DISCHARGE: 09/17/2020 HOSPITAL COURSE: The patient is an 85-year-old female patient who came to the emergency room with a complaint of shortness of breath. She was diagnosed with community-acquired pneumonia with possible superimposed acute on chronic congestive heart failure. She was treated with ceftriaxone and Zithromax and also started on IV Lasix and she did actually very well. Initially, she was requiring 4 liters of oxygen and now saw her today, she was on room air, maintaining her oxygen saturation at 94%. PHYSICAL EXAMINATION: GENERAL: When I examined her, she looked pale, but no jaundice, cyanosis or thyromegaly. No jugular venous distention or limb edema. VITAL SIGNS: Her heart rate was 70, blood pressure is 113/67, temperature was 98.2, respiratory rate 16, and oxygen saturation was 94% on room air. HEENT: Normocephalic, atraumatic. NECK: Supple. HEART: Normal first and second heart sounds. No gallop or murmur. CHEST: Shows central trachea, equal bilateral expansion, air entry, vesicular breath sounds, very few crepitations bilaterally basally and more crepitation on the posterior aspect of the right lung superiorly. I could not appreciate any rhonchi. ABDOMEN: Distended, soft, nontender. NEUROLOGIC: She was grossly intact. Her intake and output are incompletely recorded. LABORATORY DATA: Her lab work as of yesterday showed a white cell count of 6900, hemoglobin 9, hematocrit 27, MCV 98 and platelet count 321,000. Her chemistry showed a serum sodium of 141, potassium 4.7, chloride 108, bicarbonate 25, anion gap of 8, BUN 28, creatinine 1.2. Estimated GFR was 42 mL per minute. Her glucose was 127 and calcium was 8.6. DISCHARGE MEDICATIONS: She was discharged home to continue on lactobacillus rhamnosus 1 capsule twice a day, loperamide 2 mg IV twice a day, Zithromax 250 mg once a day for 3 more days, cefdinir 300 mg twice a day for 7 days, multivitamin with mineral 1 tablet once a day, losartan potassium 50 mg daily, amlodipine 5 mg once a day, metformin 500 mg twice a day, labetalol 150 mg daily, labetalol 300 mg at bedtime, levothyroxine 25 mcg once a day, atorvastatin 40 mg at bedtime, potassium chloride 10 mEq twice a day, vitamin D 6000 international units twice a day, and apixaban 5 mg twice a day. FINAL DISCHARGE DIAGNOSES: 1. Community-acquired pneumonia, resolving. 2. Acute on chronic, probably diastolic congestive heart failure, much improved. She is now on room air, maintaining her oxygen saturation 94%. 3. Atrial fibrillation with rapid ventricular response, rate controlled, well anticoagulated. 4. Hypertension, seems to be well controlled. 5. Hyperlipidemia. 6. Type 2 diabetes mellitus, seems to be well controlled. 7. Hypothyroidism. 8. Obstructive sleep apnea. 9. Age-related macular degeneration. LELA DR: Mook TID: [id number]
== END 2020-09-17 14:45 | disposition home or self-care (01) | DRG 177 ==
LOC: ER 12:20 → 1 SOUTH 15:23
PROVIDERS: ADMIT Internal Medicine; ATTEND Internal Medicine
PROC: 5A09357 Assistance with Respiratory Ventilation, Less than 24 Consecutive Hours, Continuous Positive Airway Pressure (ICD-10-PCS; principal; 2020-09-13)
PROC: 5A09357 Assistance with Respiratory Ventilation, Less than 24 Consecutive Hours, Continuous Positive Airway Pressure (ICD-10-PCS; 2020-09-14)
PROC: 5A09357 Assistance with Respiratory Ventilation, Less than 24 Consecutive Hours, Continuous Positive Airway Pressure (ICD-10-PCS; 2020-09-16)
DX: J15.6 Pneumonia due to other Gram-negative bacteria (principal); I50.33 Acute on chronic diastolic (congestive) heart failure; I11.0 Hypertensive heart disease with heart failure; J15.9 Unspecified bacterial pneumonia; E03.9 Hypothyroidism, unspecified; E11.9 Type 2 diabetes mellitus without complications; E78.5 Hyperlipidemia, unspecified; G47.33 Obstructive sleep apnea (adult) (pediatric); H35.30 Unspecified macular degeneration; I48.0 Paroxysmal atrial fibrillation; Z79.01 Long term (current) use of anticoagulants; Z82.49 Family history of ischemic heart disease and other diseases of the circulatory system; Z86.73 Personal history of transient ischemic attack (TIA), and cerebral infarction without residual deficits; Z87.891 Personal history of nicotine dependence; Z96.653 Presence of artificial knee joint, bilateral
CPT/HCPCS: 36415; 71045; 71260; 80048; 80053; 81001; 82803; 82947; 83605; 83735; 83880; 84100; 84443; 84484; 85025; 85027; 85379; 87040; 87086; 93005; 94640; J0456; J0696; J2405; J7050; Q0162; Q9967; 99285-25